=== PATIENT | female | born 1965 | race Caucasian/White ===

== ENCOUNTER 2017-12-08 17:27 | Outpatient (REF) | payer OTHER, SELFPAY ==
[2017-12-08 21:23] LABS: BUN 11 mg/dL (7-18); CREATININE 0.77 mg/dL (0.55-1.02); Calcium 8.5 mg/dL (8.5-10.1); Chloride 107 mmol/L (98-107); Cholesterol 159 mg/dL (50-200); Glucose 97 mg/dL (70-100); HDL Cholesterol 64 mg/dL (40-60); LDL CHOLESTEROL 85 mg/dL (<100); Potassium 3.6 mmol/L (3.5-5.1); Sodium 142 mmol/L (136-145); Triglyceride 67 mg/dL (30-150)
== END 2017-12-08 17:47 ==
LOC: NCHCN 17:27
PROVIDERS: PCP Internal Medicine; Visit Provider Registered Nurse
DX: Z00.00 Encounter for general adult medical examination without abnormal findings (principal); Z02.89 Encounter for other administrative examinations
CPT/HCPCS: 80048; 80061; 83721

== ENCOUNTER 2020-02-22 16:01 | Outpatient (REF) | payer OTHER, SELFPAY ==
[2020-02-22 16:21] LABS: Anion Gap 5.8 mmol/L (3-11); BUN 15 mg/dL (7-18); CO2 33.2 mmol/L (21.0-32.0); CREATININE 1.01 mg/dL (0.55-1.02); Calcium 9.2 mg/dL (8.5-10.1); Chloride 102 mmol/L (98-107); Estimated GFR 56.91 (mL/min/1.73m2); Glucose 173 mg/dL (74-106); Sodium 141 mmol/L (136-145)
[2020-02-22 16:48] LABS: Cholesterol 155 mg/dL (<200)
[2020-02-22 17:07] LABS: Potassium 2.9 mmol/L (3.5-5.1)
== END 2020-02-22 16:21 ==
LOC: NCHCN 16:01
PROVIDERS: PCP Internal Medicine; Visit Provider Registered Nurse
DX: I10 Essential (primary) hypertension (principal); E66.01 Morbid (severe) obesity due to excess calories; Z13.1 Encounter for screening for diabetes mellitus; Z83.3 Family history of diabetes mellitus
CPT/HCPCS: 80048; 82465; 83036

== ENCOUNTER 2020-02-29 09:56 | Outpatient (REF) | payer OTHER, SELFPAY ==
[2020-02-29 22:47] LABS: Anion Gap 7.6 mmol/L (3-11); BUN 13 mg/dL (7-18); CO2 30.4 mmol/L (21.0-32.0); CREATININE 0.95 mg/dL (0.55-1.02); Calculated LDL 81 mg/dL (<100); Chloride 105 mmol/L (98-107); Cholesterol 155 mg/dL (<200); Glucose 119 mg/dL (74-106); HDL Cholesterol 56 mg/dL (40-60); Potassium 4.1 mmol/L (3.5-5.1); Sodium 143 mmol/L (136-145); Triglyceride 90 mg/dL (<150)
== END 2020-02-29 10:16 ==
LOC: NCHCN 09:56
PROVIDERS: PCP Internal Medicine; Visit Provider Registered Nurse
DX: Z00.00 Encounter for general adult medical examination without abnormal findings (principal); E87.6 Hypokalemia; E66.01 Morbid (severe) obesity due to excess calories
CPT/HCPCS: 80048; 80061

== ENCOUNTER 2020-06-05 08:01 | Outpatient (REF) | payer OTHER, SELFPAY ==
[2020-06-05 14:12] LABS: Anion Gap 12.9 mmol/L (3-11); BUN 11 mg/dL (7-18); CO2 26.1 mmol/L (21.0-32.0); CREATININE 0.8 mg/dL (0.55-1.02); Calcium 8.7 mg/dL (8.5-10.1); Chloride 105 mmol/L (98-107); Glucose 112 mg/dL (74-106); Potassium 4.1 mmol/L (3.5-5.1); Sodium 144 mmol/L (136-145)
[2020-06-05 15:05] LABS: Hemoglobin A1C 5.9 % (<5.7)
== END 2020-06-05 08:02 | disposition home or self-care (01) ==
LOC: NCHCN 08:01
PROVIDERS: PCP Internal Medicine; Visit Provider Registered Nurse
DX: R73.03 Prediabetes (principal); I10 Essential (primary) hypertension
CPT/HCPCS: 80048; 83036

== ENCOUNTER 2022-02-18 10:14 | Outpatient (REF) | payer OTHER, SELFPAY ==
[2022-02-18 15:00] LABS: ALT 29 U/L (14-59); AST 25 U/L (15-37); Alkaline Phosphatase 80 U/L (46-116); Anion Gap 10.9 mmol/L (3-11); BUN 14 mg/dL (7-18); Bilirubin, Total 0.5 mg/dL (0.2-1.0); CO2 27.1 mmol/L (21.0-32.0); CREATININE 0.8 mg/dL (0.55-1.02); Calcium 9.1 mg/dL (8.5-10.1); Chloride 106 mmol/L (98-107); Estimated GFR 85.89 (mL/min/1.73m2); Glucose 101 mg/dL (74-106); Sodium 144 mmol/L (136-145); Total Protein 7.5 g/dL (6.4-8.2)
== END 2022-02-18 10:15 | disposition home or self-care (01) ==
LOC: NCHCN 10:14
PROVIDERS: PCP Internal Medicine; Visit Provider Registered Nurse
DX: I10 Essential (primary) hypertension (principal); Z11.59 Encounter for screening for other viral diseases
CPT/HCPCS: 80053; 86803

== ENCOUNTER 2023-06-02 09:13 | Outpatient (REF) | payer OTHER, SELFPAY ==
[2023-06-02 15:55] LABS: COMMENT (LAB VIEW ONLY) 174.92 mg/dL; Microalb ug/mg Crea 6.4 ug/mg Cr
== END 2023-06-02 09:14 | disposition home or self-care (01) ==
LOC: NCHCN 09:13
PROVIDERS: PCP Internal Medicine; Visit Provider Family Medicine
DX: R73.03 Prediabetes (principal)
CPT/HCPCS: 82043; 82570

== ENCOUNTER 2023-09-01 08:59 | Outpatient (REF) | payer OTHER, SELFPAY ==
[2023-09-01 15:38] LABS: Anion Gap 5.2 mmol/L (3-11); BUN 11 mg/dL (7-18); CO2 31.8 mmol/L (21.0-32.0); CREATININE 0.8 mg/dL (0.55-1.02); Calcium 9.3 mg/dL (8.5-10.1); Calculated LDL 77 mg/dL (<100); Chloride 108 mmol/L (98-107); Cholesterol 165 mg/dL (<200); Estimated GFR 85.35 (mL/min/1.73m2); Glucose 123 mg/dL (74-106); HDL Cholesterol 65 mg/dL (40-60); Potassium 4.5 mmol/L (3.5-5.1); Sodium 145 mmol/L (136-145); Triglyceride 117 mg/dL (<150)
== END 2023-09-01 09:00 | disposition home or self-care (01) ==
LOC: NCHCN 08:59
PROVIDERS: PCP Internal Medicine; Visit Provider Family Medicine
DX: I10 Essential (primary) hypertension (principal); E66.01 Morbid (severe) obesity due to excess calories
CPT/HCPCS: 80048; 80061